=== PATIENT | female | born 1945 | race Caucasian/White ===

== ENCOUNTER 2016-08-24 16:12 | Inpatient (IN) | payer MEDICARE, OTHER ==
[2016-08-24] MEDS ORDERED: Sodium Chloride 0.9% 1,000 ML IV ONE (17:21)
--- NOTE | 2016-08-24 17:44 | C.PDOC ---
History Of Present Illness 71 y/o female presents to the ED with complains of weakness and fatigue x1 month worsening over the past 4 days. Son is concerned for weight loss. Pt complains of low appetite and chronic back pain. Denies abdominal pain, cough, CP, SOB, vomiting, diarrhea, changes in urination or bowel habits or any other complaints. Son went to visit patient today and she was still in bed which was abnormal. Time Seen by Provider: 08/24/16 17:15 Chief Complaint (Nursing): Weakness/Neurological Deficit History Per: Patient History/Exam Limitations: no limitations Onset/Duration Of Symptoms: Days Current Symptoms Are (Timing): Worse Fall Associated With With Symptoms: No Recent travel outside of the [place]: No Additional History Per: Family Past Medical History Reviewed: Historical Data, Nursing Documentation, Vital Signs Vital Signs: Last Vital Signs Temp 98.2 F 08/24/16 16:47 Pulse 112 H 08/24/16 16:47 Resp 22 08/24/16 16:47 BP 149/89 08/24/16 16:47 Pulse Ox 98 08/24/16 18:50 - Medical History PMH: Asthma Family History: States: Unknown Family Hx - Social History Hx Tobacco Use: No Hx Alcohol Use: No Hx Substance Use: No - Immunization History Hx Tetanus Toxoid Vaccination: No Hx Influenza Vaccination: No Hx Pneumococcal Vaccination: No Review Of Systems Except As Marked, All Systems Reviewed And Found Negative. Constitutional: Positive for: Weakness, Other (decreased appetite, fatigue). Negative for: Fever, Chills Cardiovascular: Negative for: Chest Pain Respiratory: Negative for: Cough, Shortness of Breath Gastrointestinal: Negative for: Vomiting, Abdominal Pain, Diarrhea Physical Exam - Physical Exam Appears: Non-toxic, No Acute Distress Skin: Warm, Dry, No Rash Head: Atraumatic, Normacephalic Oral Mucosa: Dry Neck: Normal ROM, Supple Chest: Symmetrical Cardiovascular: Rhythm Regular, No Murmur Respiratory: Normal Breath Sounds, No Rales, No Rhonchi, No Wheezing Gastrointestinal/Abdominal: Soft, No Tenderness Extremity: Normal ROM Extremity: Bilateral: Atraumatic ED Course And Treatment - Laboratory Results Result Diagrams: 08/24/16 17:47 08/24/16 17:47 Lab Interpretation: Abnormal (blood sugar 395. Patient is not known to be diabetic.) O2 Sat by Pulse Oximetry: 98 (on room air) Pulse Ox Interpretation: Normal - Radiology CXR: Viewed By Me, Read By Radiologist CXR Interpretation: Yes: COPD Progress Note: Plan: labs, CXR, UA Reevaluation Time: 18:50 Reassessment Condition: Improved (More comfortable after IV fluid.) - Physician Consult Information Time Consulting Physician Contacted: 19:04 Physician Contacted: Sonu Singletary Outcome Of Conversation: Patient to be admitted for new onset diabetes. Disposition - Disposition Disposition: HOSPITALIZED Disposition Time: 19:08 Condition: STABLE - POA Present On Arrival: Poor Glycemic Control - Clinical Impression Clinical Impression: New onset type 2 diabetes mellitus - Scribe Statement The provider has reviewed the documentation as recorded by the Humberto Petersen Provider Attestation: All medical record entries made by the Humberto were at my direction and personally dictated by me. I have reviewed the chart and agree that the record accurately reflects my personal performance of the history, physical exam, medical decision making, and the department course for this patient. I have also personally directed, reviewed, and agree with the discharge instructions and disposition.
[2016-08-24] MEDS ORDERED: Naproxen 550 mg Tab PO STA (17:50)
[2016-08-24 17:53] LABS: BASO % 0.8 % (0.0-2.0); EOS % 0.7 % (0.0-4.0); HEMATOCRIT 43.7 % (34.0-47.0); LYMPH # 1.4 K/uL (1.0-4.3); MEAN CELL VOLUME 88.2 fL (81.0-99.0); MEAN CORPUSCULAR HEMOGLOBIN 30.7 pg (27.0-31.0); MEAN CORPUSCULAR HGB CONC 34.8 g/dL (33.0-37.0); MEAN PLATELET VOLUME 8.8 fL (7.2-11.7); MONO # 0.3 K/uL (0.0-0.8); MONO % 5.9 % (0.0-10.0); NRBC % 0.1 % (0.0-2.0); RED CELL DISTRIBUTION WIDTH 12.8 % (11.5-14.5); WHITE BLOOD COUNT 5.3 K/uL (4.8-10.8)
[2016-08-24 18:00] LABS: CHLORIDE 92 mmol/L (98-107); POTASSIUM 4.3 mmol/L (3.6-5.2); SODIUM 133 mmol/L (132-148)
[2016-08-24 18:02] LABS: ALB/GLOB RATIO 1.1 (1.0-2.1); ALKALINE PHOSPHATASE 73 U/L (38-126); AST/SGOT 48 U/L (14-36); BILIRUBIN,TOTAL 0.8 mg/dL (0.2-1.3); BLOOD UREA NITROGEN 11 mg/dL (7-17); CARBON DIOXIDE 25 mmol/L (22-30); GFR AFRICAN-AMERICAN > 60; TOTAL PROTEIN 8.1 g/dL (6.3-8.3)
[2016-08-24] MEDS ORDERED: Sodium Chloride 0.9% 1,000 ML ONE (18:02)
[2016-08-24] MEDS ORDERED: Naproxen 550 mg Tab PO ONE (18:02)
[2016-08-24 18:03] LABS: ALT/SGPT 84 U/L (9-52); CALCIUM 9.2 mg/dl (8.6-10.4); GLUCOSE,RANDOM 395 mg/dL (65-105); MAGNESIUM 1.7 mg/dL (1.6-2.3)
[2016-08-24 18:23] LABS: RBC URINE 3 /hpf (0-3); URINE BACTERIA RARE (<OCC); URINE BILIRUBIN NEGATIVE (NEGATIVE); URINE BLOOD NEGATIVE (NEGATIVE); URINE COLOR Yellow (YELLOW); URINE GLUCOSE (UA) 3+ mg/dL (Normal); URINE KETONE 1+ mg/dL (NEGATIVE); URINE LEUKOCYTE ESTERASE 1+ Leu/uL (Negative); URINE PROTEIN NEGATIVE (NEGATIVE); URINE UROBILINOGEN NORMAL mg/dL (0.2-1.0); WBC URINE 8 /hpf (0-5)
--- NOTE | 2016-08-24 18:32 | RAD ---
HISTORY: SOB COMPARISON: None available. TECHNIQUE: Chest PA and lateral FINDINGS: LUNGS: Hyperinflation may be seen in the setting of COPD. Emphysematous changes. No focal consolidation. Please note that chest x-ray has limited sensitivity for the detection of pulmonary masses. PLEURA: No significant pleural effusion identified. No definite pneumothorax . CARDIOVASCULAR: Heart size appears within normal limits. Atherosclerotic calcifications of the aorta. OSSEOUS STRUCTURES: Mild degenerative changes. VISUALIZED UPPER ABDOMEN: Unremarkable. OTHER FINDINGS: None. IMPRESSION: COPD/emphysema.
[2016-08-24] MEDS ORDERED: Sodium Chloride 0.9% 500 ML IV ONE ×2 (18:47→19:25)
[2016-08-24] MEDS ORDERED: (Novolin R) Insulin Human Regular 100 units/ml vial IV ONE (21:48)
[2016-08-24] MEDS: Sodium Chloride 0.9% 1,000 ML IV SCH (22:05)
[2016-08-24] MEDS: (Novolin R) Insulin Human Regular 100 units/ml vial SC SCH (22:06)
--- NOTE | 2016-08-24 22:30 | CP.PCM.HP ---
<Jennifer You - Last Filed: 08/24/16 22:18> History of Present Illness - History of Present Illness History of Present Illness: CC: "weight loss and weakness" HPI: Patient is a 71 year old female with previous medical history of gallstone pancreatitis and chronic back pain who presented to the emergency department due to significant weight loss and weakness. Patient states she lost 55 pounds within 3-4 months (previously weighed 125 pounds) and has been experiencing fatigue and weakness for 1 month. Patient states she has a poor diet and reports having only coffee for breakfast and eating rice or soup for dinner. She recently started to drink 2 ensures per day. Patient states her po intake has been limited to soft foods since she lost her teeth. Patient admits to polydipsia and polyuria present for a month. She states she finds herself constantly drinking water as she feels her oral mucosa and lips to be dry. Patient denies fruity breath, shortness of breath, abdominal pain, nausea, vomiting, diarrhea, constipation, hematochezia or melenic stool, lower extremity edema, numbness or tingling to lower extremities. She admits to blurry vision for which she has an appointment with an touch up worker. She notes it has been a long time since seeing her primary care doctor. PMD: Dr. Dalton PMH: see HPI Medications: Tylenol 650 mg po once daily for chronic back pain Allergies: NKDA Family Hx: not pertinent Surgical History: none Social: Never smoker. Denies alcohol and illicit drug use. Present on Admission - Present on Admission Any Indicators Present on Admission: No History of DVT/PE: No History of Uncontrolled Diabetes: No Urinary Catheter: No Decubitus Ulcer Present: No Review of Systems - Constitutional Constitutional: Fatigue, Headache, Lethargy, Weight Loss. absent: Chills, Fever , Night Sweats - EENT Eyes: Blurred Vision, Change in Vision Ears: absent: Ear Discharge, Ear Pain Nose/Mouth/Throat: absent: Nasal Congestion, Nasal Discharge, Sinus Pain - Cardiovascular Cardiovascular: absent: Chest Pain, Chest Pain with Activity, Dyspnea, Edema, Leg Edema, Palpitations, Paroxysmal Nocturnal Dyspnea, Syncope - Respiratory Respiratory: absent: Cough, Dyspnea, Dyspnea on Exertion, Chest Congestion, Excessive Mucous Production - Gastrointestinal Gastrointestinal: absent: Abdominal Pain, Bloating, Change in Bowel Habits, Constipation, Diarrhea, Dysphagia, Hematochezia, Melena, Nausea, Vomiting - Musculoskeletal Musculoskeletal: Back Pain - Integumentary Integumentary: absent: Changing Lesions, New Lesions - Neurological Neurological: Weakness. absent: Lack of Coordination, Paresthesias, Sensory Deficit, Tingling - Psychiatric Psychiatric: absent: Anxiety, Depression - Endocrine Endocrine: absent: Cold Intolorance, Heat Intolorance Past Patient History - Infectious Disease Hx of Infectious Diseases: None - Past Social History Smoking Status: Never Smoked - CARDIAC Hx Hypotension: Yes - PULMONARY Hx Asthma: Yes - HEENT Hx Cataracts: Yes - PSYCHIATRIC Hx Substance Use: No Meds Allergies/Adverse Reactions: Allergies Allergy/AdvReac Type Severity Reaction Status Date / Time No Known Allergies Allergy Verified 08/24/16 16:53 Physical Exam - Constitutional Appears: Non-toxic, No Acute Distress - Head Exam Head Exam: ATRAUMATIC, NORMAL INSPECTION, NORMOCEPHALIC - Eye Exam Eye Exam: EOMI, Normal appearance, PERRL. absent: Scleral icterus Pupil Exam: PERRL - ENT Exam ENT Exam: Mucous Membranes Moist, Normal Exam - Neck Exam Neck exam: Positive for: Normal Inspection. Negative for: Lymphadenopathy - Respiratory Exam Respiratory Exam: Clear to Auscultation Bilateral, NORMAL BREATHING PATTERN. absent: Rales, Rhonchi, Wheezes - Cardiovascular Exam Cardiovascular Exam: +S1, +S2. absent: Tachycardia - GI/Abdominal Exam GI & Abdominal Exam: Normal Bowel Sounds, Soft. absent: Distended, Firm, Guarding - Extremities Exam Extremities exam: Positive for: normal inspection, pedal pulses present. Negative for: pedal edema, tenderness - Back Exam Back exam: NORMAL INSPECTION. absent: tenderness - Neurological Exam Neurological exam: Alert, CN II-XII Intact, Oriented x3 - Psychiatric Exam Psychiatric exam: Normal Mood - Skin Skin Exam: Dry, Normal Color Results - Vital Signs Recent Vital Signs: Last Vital Signs Temp 98.5 F 08/24/16 19:52 Pulse 95 H 08/24/16 19:52 Resp 18 08/24/16 19:52 BP 141/82 08/24/16 19:52 Pulse Ox 97 08/24/16 19:52 - Labs Result Diagrams: 08/24/16 17:47 08/24/16 17:47 Assessment & Plan - Assessment and Plan (Free Text) Assessment: 1. New onset Diabetes Mellitus - likely Type I - reports polydipsia, polyuria, significant weight loss - glucose 395 - f/u hemoglobin a1c - f/u TSH, T4 and AM labs - Start Normal Saline IV @125cc for hydration - Start Insulin Sliding Scale - low protocol - Accuchecks - CT Abdomen/Pelvis with PO and IV contrast for the morning to evaluate the pancreas 2. Prophylaxis - Soft Diet, Boost Glucose Control - SCD - Pepcid 20 mg po daily - Date & Time Date: 08/24/16 Time: 22:44 <Stevie Freeman P - Last Filed: 08/26/16 20:17> Results - Vital Signs Recent Vital Signs: Last Vital Signs Temp 97.9 F 08/26/16 07:48 Pulse 79 08/26/16 10:18 Resp 20 08/26/16 07:48 BP 134/83 08/26/16 07:48 Pulse Ox 98 08/26/16 07:48 - Labs Result Diagrams: 08/25/16 08:15 08/25/16 08:15 Labs: Laboratory Results - last 24 hr 08/25/16 08/26/16 08/26/16 21:10 07:11 11:07 POC Glucose (mg/dL) 325 H 342 H 311 H Attending/Attestation - Attestation I have personally seen and examined this patient.: Yes I have fully participated in the care of the patient.: Yes I have reviewed all pertinent clinical information: Yes
[2016-08-24 23:56] VITALS: RESP 20
[2016-08-25] MEDS: Sodium Chloride 0.9% 1,000 ML IV SCH ×3 (05:52→21:25)
[2016-08-25] MEDS: (Novolin R) Insulin Human Regular 100 units/ml vial SC SCH ×4 (08:15→22:22)
[2016-08-25 08:21] LABS: BASO # 0.1 K/uL (0.0-0.2); BASO % 1.5 % (0.0-2.0); EOS # 0.1 K/uL (0.0-0.7); EOS % 2.1 % (0.0-4.0); HEMATOCRIT 40.4 % (34.0-47.0); LYMPH # 1.6 K/uL (1.0-4.3); LYMPH % 42.6 % (20.0-40.0); MEAN CELL VOLUME 88.9 fL (81.0-99.0); MEAN CORPUSCULAR HEMOGLOBIN 30.7 pg (27.0-31.0); MEAN CORPUSCULAR HGB CONC 34.5 g/dL (33.0-37.0); MEAN PLATELET VOLUME 8.5 fL (7.2-11.7); MONO # 0.3 K/uL (0.0-0.8); MONO % 6.7 % (0.0-10.0); RED CELL DISTRIBUTION WIDTH 12.7 % (11.5-14.5); WHITE BLOOD COUNT 3.8 K/uL (4.8-10.8)
[2016-08-25 08:29] LABS: CHLORIDE 98 mmol/L (98-107)
[2016-08-25 08:30] LABS: POTASSIUM 3.7 mmol/L (3.6-5.2); SODIUM 133 mmol/L (132-148)
[2016-08-25 08:31] LABS: CHOLESTEROL 176 mg/dL (0-199)
[2016-08-25 08:32] LABS: ALKALINE PHOSPHATASE 61 U/L (38-126); ALT/SGPT 71 U/L (9-52); AST/SGOT 54 U/L (14-36); BILIRUBIN,TOTAL 0.7 mg/dL (0.2-1.3); BLOOD UREA NITROGEN 9 mg/dL (7-17); CARBON DIOXIDE 21 mmol/L (22-30); GFR AFRICAN-AMERICAN > 60; GLUCOSE,RANDOM 248 mg/dL (65-105); PHOSPHOROUS 2.6 mg/dL (2.5-4.5); TOTAL PROTEIN 6.6 g/dL (6.3-8.3)
[2016-08-25 08:33] LABS: CALCIUM 8.1 mg/dl (8.6-10.4); MAGNESIUM 1.5 mg/dL (1.6-2.3)
[2016-08-25 08:54] LABS: T4 6.94 ug/dL (5.5-11.0)
[2016-08-25 09:08] LABS: THYROID STIMULATING HORMONE 5.92 mIU/L (0.46-4.68)
[2016-08-25] MEDS ORDERED: Iohexol 240 (50 ml) PO ONE (09:15)
--- NOTE | 2016-08-25 10:15 | CP.PCM.PN ---
<Moises Lopez - Last Filed: 08/25/16 10:08> Subjective - Date & Time of Evaluation Date of Evaluation: 08/25/16 Time of Evaluation: 10:08 - Subjective Subjective: PGY-1 note for medicine service Pt seen and examined at bedside. Pt states that she feels better today with increased strength. She has no abdominal pain, nausea, vomiting, chest pain, palpitations or sob. Objective - Vital Signs/Intake and Output Vital Signs (last 24 hours): Temp Pulse Resp BP Pulse Ox 98 F 84 20 148/90 98 08/25/16 07:46 08/25/16 07:46 08/25/16 07:46 08/25/16 07:46 08/25/16 07:46 Intake and Output: 08/25/16 08/25/16 06:59 18:59 Intake Total 1150 Balance 1150 - Medications Medications: Current Medications Famotidine (Pepcid) 20 mg PO DAILY [facility] Glipizide (Glucotrol) 2.5 mg PO BIDAC [facility] Heparin Sodium (Porcine) (Heparin) 5,000 units SC Q12 [facility] Sodium Chloride (Sodium Chloride 0.9%) 1,000 mls @ 125 mls/hr IV .Q8H [facility] Last Admin: 08/25/16 05:52 Dose: 125 mls/hr Magnesium Sulfate/Dextrose (Magnesium Sulfate 1 Gm/100 Ml D5w) 100 mls @ 200 mls/hr IVPB ONCE ONE Stop: 08/25/16 10:29 Last Admin: 08/25/16 09:34 Dose: 200 mls/hr Insulin Human Regular (Novolin R) 0 unit SC ACHS [facility] PRN Reason: Protocol Lisinopril (Zestril) 2.5 mg PO DAILY [facility] Metformin HCl (Glucophage) 500 mg PO BIDCC [facility] Rosuvastatin Calcium (Crestor) 5 mg PO HS [facility] - Labs Labs: 08/25/16 08:15 08/25/16 08:15 - Constitutional Appears: Non-toxic, No Acute Distress - Head Exam Head Exam: ATRAUMATIC, NORMOCEPHALIC - ENT Exam ENT Exam: Mucous Membranes Dry - Respiratory Exam Respiratory Exam: Clear to Ausculation Bilateral, NORMAL BREATHING PATTERN - Cardiovascular Exam Cardiovascular Exam: +S1, +S2 - GI/Abdominal Exam GI & Abdominal Exam: Soft, Normal Bowel Sounds. absent: Tenderness - Neurological Exam Neurological Exam: Alert, Awake - Skin Skin Exam: Dry, Warm Assessment and Plan - Assessment and Plan (Free Text) Assessment: New onset Diabetes Mellitus - likely Type II - reports polydipsia, polyuria, significant weight loss - hemoglobin a1c - 14.2 - Thyroid panel unremarkable - Normal Saline IV @125cc for hydration - Upgraded ISS to high - Will start glipezide 2.5mg BID - Will start Metformin 500mg BID - Will also start lisinopril 2.5mg daily and Crestor 5mg HS - Accuchecks - CT Abdomen/Pelvis with PO and IV contrast for the morning to evaluate the pancreas - f/u Prophylaxis - Soft Diet, Boost Glucose Control - SCD - Pepcid 20 mg po daily <Sonu Singletary - Last Filed: 08/25/16 11:35> Objective - Vital Signs/Intake and Output Vital Signs (last 24 hours): Temp Pulse Resp BP Pulse Ox 98 F 84 20 148/90 98 08/25/16 07:46 08/25/16 07:46 08/25/16 07:46 08/25/16 07:46 08/25/16 07:46 Intake and Output: 08/25/16 08/25/16 06:59 18:59 Intake Total 1150 Balance 1150 - Medications Medications: Current Medications Famotidine (Pepcid) 20 mg PO DAILY [facility] Last Admin: 08/25/16 10:50 Dose: 20 mg Glipizide (Glucotrol) 2.5 mg PO BIDAC [facility] Last Admin: 08/25/16 10:54 Dose: Not Given Heparin Sodium (Porcine) (Heparin) 5,000 units SC Q12 [facility] Last Admin: 08/25/16 10:50 Dose: 5,000 units Sodium Chloride (Sodium Chloride 0.9%) 1,000 mls @ 125 mls/hr IV .Q8H [facility] Last Admin: 08/25/16 05:52 Dose: 125 mls/hr Insulin Human Regular (Novolin R) 0 unit SC ACHS [facility] PRN Reason: Protocol Lisinopril (Zestril) 2.5 mg PO DAILY [facility] Last Admin: 08/25/16 10:51 Dose: 2.5 mg Metformin HCl (Glucophage) 500 mg PO BIDCC [facility] Last Admin: 08/25/16 10:47 Dose: Not Given Rosuvastatin Calcium (Crestor) 5 mg PO HS [facility] - Labs Labs: 08/25/16 08:15 08/25/16 08:15 Attending/Attestation - Attestation I have personally seen and examined this patient.: Yes I have fully participated in the care of the patient.: Yes I have reviewed all pertinent clinical information, including history, physical exam and plan: Yes Notes (Text): 08/25/16 11:33 Medical attending: Patient was seen and examined by me, agrees the above note by medical scientific officer. The patient reported that she was feeling better than before, she was not as tired and not as fatigued. She explains to us as well as to the family member present in the room that she's been having a lot of polyuria and polydipsia. She explains that she's also noticed some weight loss as well, fatigued, and has not been feeling herself She does not know that she has a history of diabetes, however she also says that she hasn't seen her physician in quite a while. At this time will continue continue with the intravenous fluids that was started by overnight team, will change her insulin over to a higher sliding scale. We will start metformin, and we will also start glipizide, low dose statin and RADHA inhibitor. The patient had a family member who is present at bedside. Family member also works at the hospital as well. Thank you very much, Sonu Singletary
[2016-08-25] MEDS: GlipiZIDE 2.5 mg Tab PO SCH ×2 (10:54→17:55)
[2016-08-25] MEDS ORDERED: Iodixanol 320 MG/ML 100 ML BOTTLE IV ONE (12:33)
--- NOTE | 2016-08-25 13:54 | CT ---
PROCEDURE: CT Abdomen and Pelvis with oral and IV contrast. HISTORY: evaluate for mass COMPARISON: None available. TECHNIQUE: Contiguous axial images of the abdomen and pelvis. Oral and IV contrast was administered. Coronal and Sagittal reformats generated and reviewed. Contrast dose: 100 cc Visipaque 320 Radiation dose: Total exam DLP = 202.48 mGy-cm. FINDINGS: LOWER THORAX: No visible consolidation, pleural effusion, or pneumothorax. Small hiatal hernia. LIVER: Hypoattenuation of the liver compatible with hepatic steatosis. GALLBLADDER AND BILE DUCTS: Cholecystectomy. PANCREAS: Unremarkable. SPLEEN: 5 mm probable splenule. Otherwise unremarkable. ADRENALS: Unremarkable. KIDNEYS AND URETERS: The kidneys enhance symmetrically. No hydronephrosis or obstructing renal calculus. 13 mm left renal hypodensity, likely cyst. BLADDER: The urinary bladder appears unremarkable. REPRODUCTIVE: The uterus is present. APPENDIX: The appendix appears within normal limits of caliber. No secondary signs of acute appendicitis. BOWEL: Nondistended stomach containing ingested debris limits evaluation. Mild wall thickening of the distal gastric wall may be exaggerated by under distension. Alternatives including gastritis cannot be excluded. Correlate clinically. The bowel loops appear within normal limits of caliber without evidence of intestinal obstruction. PERITONEUM: Small pelvic free fluid. No definite free air. LYMPH NODES: No bulky lymphadenopathy identified. VASCULATURE: No aortic aneurysm. BONES: Mild degenerative changes. OTHER FINDINGS: None. IMPRESSION: Small pelvic free fluid. Hepatic steatosis. Cholecystectomy. 13 mm left renal hypodensity, likely cyst. Small hiatal hernia. Nondistended stomach containing ingested debris limits evaluation. Mild wall thickening of the distal gastric wall may be exaggerated by under distension. Alternatives including gastritis cannot be excluded. Correlate clinically.
[2016-08-25] MEDS ORDERED: Albuterol-Ipratrop 3 mg / 0.5 (3 ml) UD INH PRN (14:03)
[2016-08-26 01:54] VITALS: O2SAT 98
[2016-08-26] MEDS: Sodium Chloride 0.9% 1,000 ML IV SCH (06:45)
[2016-08-26 07:50] VITALS: BP 134/83; PULSE 79; TEMP 97.9
[2016-08-26] MEDS: (Novolin R) Insulin Human Regular 100 units/ml vial SC SCH (09:16)
[2016-08-26] MEDS: GlipiZIDE 2.5 mg Tab PO SCH (09:29)
--- NOTE | 2016-08-26 09:38 | CP.PCM.DIS ---
<Moises Lopez - Last Filed: 08/26/16 12:08> Provider - Provider Date of Admission: 08/24/16 21:49 Attending physician: Stevie Freeman MD Primary care physician: Sha Time Spent in preparation of Discharge (in minutes): 31 Hospital Course - Lab Results Lab Results: Most Recent Lab Values WBC 3.8 K/uL (4.8-10.8) L 08/25/16 08:15 RBC 4.54 Mil/uL (3.80-5.20) 08/25/16 08:15 Hgb 13.9 g/dL (11.0-16.0) 08/25/16 08:15 Hct 40.4 % (34.0-47.0) 08/25/16 08:15 MCV 88.9 fL (81.0-99.0) 08/25/16 08:15 MCH 30.7 pg (27.0-31.0) 08/25/16 08:15 MCHC 34.5 g/dL (33.0-37.0) 08/25/16 08:15 RDW 12.7 % (11.5-14.5) 08/25/16 08:15 Plt Count 290 K/uL (130-400) 08/25/16 08:15 MPV 8.5 fL (7.2-11.7) 08/25/16 08:15 Neut % (Auto) 47.1 % (50.0-75.0) L 08/25/16 08:15 Lymph % (Auto) 42.6 % (20.0-40.0) H 08/25/16 08:15 Lawrence % (Auto) 6.7 % (0.0-10.0) 08/25/16 08:15 Eos % (Auto) 2.1 % (0.0-4.0) 08/25/16 08:15 Baso % (Auto) 1.5 % (0.0-2.0) 08/25/16 08:15 Neut # 1.8 K/uL (1.8-7.0) 08/25/16 08:15 Lymph # 1.6 K/uL (1.0-4.3) 08/25/16 08:15 Lawrence # 0.3 K/uL (0.0-0.8) 08/25/16 08:15 Eos # 0.1 K/uL (0.0-0.7) 08/25/16 08:15 Baso # 0.1 K/uL (0.0-0.2) 08/25/16 08:15 Sodium 133 mmol/L (132-148) 08/25/16 08:15 Potassium 3.7 mmol/L (3.6-5.2) 08/25/16 08:15 Chloride 98 mmol/L (98-107) 08/25/16 08:15 Carbon Dioxide 21 mmol/L (22-30) L 08/25/16 08:15 Anion Gap 18 (10-20) 08/25/16 08:15 BUN 9 mg/dL (7-17) 08/25/16 08:15 Creatinine 0.3 MG/DL (0.7-1.2) L 08/25/16 08:15 Est GFR ( Amer) > 60 08/25/16 08:15 Est GFR (Non-Af Amer) > 60 08/25/16 08:15 POC Glucose (mg/dL) 342 mg/dL (65-110) H 08/26/16 07:11 Random Glucose 248 mg/dL (65-105) H 08/25/16 08:15 Hemoglobin A1c 14.2 % (4.2-6.5) H 08/25/16 08:15 Calcium 8.1 mg/dl (8.6-10.4) L 08/25/16 08:15 Phosphorus 2.6 mg/dL (2.5-4.5) 08/25/16 08:15 Magnesium 1.5 mg/dL (1.6-2.3) L 08/25/16 08:15 Total Bilirubin 0.7 mg/dL (0.2-1.3) 08/25/16 08:15 AST 54 U/L (14-36) H 08/25/16 08:15 ALT 71 U/L (9-52) H 08/25/16 08:15 Alkaline Phosphatase 61 U/L (38-126) 08/25/16 08:15 Total Protein 6.6 g/dL (6.3-8.3) 08/25/16 08:15 Albumin 3.3 g/dL (3.5-5.0) L D 08/25/16 08:15 Globulin 3.3 gm/dL (2.2-3.9) 08/25/16 08:15 Albumin/Globulin Ratio 1.0 (1.0-2.1) 08/25/16 08:15 Triglycerides 103 mg/dL (0-149) 08/25/16 08:15 Cholesterol 176 mg/dL (0-199) 08/25/16 08:15 LDL Cholesterol Direct 113 mg/dL (0-129) 08/25/16 08:15 HDL Cholesterol 42 mg/dL (30-70) 08/25/16 08:15 Vitamin B12 454 pg/mL (239-931) 08/25/16 08:15 25-OH Vitamin D Total 23.2 NG/ML (30.0-100.0) L 08/25/16 08:15 Thyroxine (T4) 6.94 ug/dL (5.5-11.0) 08/25/16 08:15 TSH 3rd Generation 5.92 mIU/L (0.46-4.68) H 08/25/16 08:15 Urine Color Yellow (YELLOW) 08/24/16 17:57 Urine Clarity Clear (Clear) 08/24/16 17:57 Urine pH 5.0 (5.0-8.0) 08/24/16 17:57 Ur Specific [place] 1.040 (1.003-1.030) H 08/24/16 17:57 Urine Protein Negative mg/dL (NEGATIVE) 08/24/16 17:57 Urine Glucose (UA) 3+ mg/dL (Normal) H 08/24/16 17:57 Urine Ketones 1+ mg/dL (NEGATIVE) H 08/24/16 17:57 Urine Blood Negative (NEGATIVE) 08/24/16 17:57 Urine Nitrate Negative (NEGATIVE) 08/24/16 17:57 Urine Bilirubin Negative (NEGATIVE) 08/24/16 17:57 Urine Urobilinogen Normal mg/dL (0.2-1.0) 08/24/16 17:57 Ur Leukocyte Esterase 1+ Aimee/uL (Negative) H 08/24/16 17:57 Urine WBC (Auto) 8 /hpf (0-5) H 08/24/16 17:57 Urine RBC (Auto) 3 /hpf (0-3) 08/24/16 17:57 Ur Squamous Epith Cells < 1 /hpf (0-5) 08/24/16 17:57 Urine Bacteria Rare (<OCC) 08/24/16 17:57 - Hospital Course Hospital Course: On hospital admission Patient is a 71 year old female with previous medical history of gallstone pancreatitis and chronic back pain who presented to the emergency department due to significant weight loss and weakness. Patient states she lost 55 pounds within 3-4 months (previously weighed 125 pounds) and has been experiencing fatigue and weakness for 1 month. Patient states she has a poor diet and reports having only coffee for breakfast and eating rice or soup for dinner. She recently started to drink 2 ensures per day. Patient states her po intake has been limited to soft foods since she lost her teeth. Patient admits to polydipsia and polyuria present for a month. She states she finds herself constantly drinking water as she feels her oral mucosa and lips to be dry. Patient denies fruity breath, shortness of breath, abdominal pain, nausea, vomiting, diarrhea, constipation, hematochezia or melenic stool, lower extremity edema, numbness or tingling to lower extremities. She admits to blurry vision for which she has an appointment with an rn clinical documentation specialist. She notes it has been a long time since seeing her primary care doctor. On hospital admission The pt was admitted for new onset diabetes with weight loss. A CT abdomen and pelvis with contrast was ordered which revealed no acute processes or masses. The pt was started on metformin and glimepizide which she tolerated well. She was resuscitated appropriately with IVF and she improved symptomatically. Pt was discharged in stable condition on the following new medications: Aspirin [Adult Low Dose Aspirin EC] 81 mg PO DAILY #30 tablet. Rosuvastatin Calcium [Crestor] 5 mg PO HS #30 tab GlipiZIDE [Glucotrol] 2.5 mg PO BIDAC #60 tab Lisinopril [Zestril] 2.5 mg PO DAILY #30 tab metFORMIN [glucOPHAGE] 500 mg PO BIDCC #60 tab Pt instructed to follow up with primary care physician within the next week. Diagnoses New onset diabetes mellitus This is a summary of hospital course, for details please see EMR. - Date & Time of H&P Date of H&P: 08/24/16 Time of H&P: 22:18 Discharge Exam - Head Exam Head Exam: ATRAUMATIC, NORMOCEPHALIC Discharge Plan - Discharge Medications Prescriptions: Aspirin [Adult Low Dose Aspirin EC] 81 mg PO DAILY #30 tablet. Rosuvastatin Calcium [Crestor] 5 mg PO HS #30 tab GlipiZIDE [Glucotrol] 2.5 mg PO BIDAC #60 tab Lisinopril [Zestril] 2.5 mg PO DAILY #30 tab metFORMIN [glucOPHAGE] 500 mg PO BIDCC #60 tab - Follow Up Plan Condition: GOOD Disposition: HOME/ ROUTINE Instructions: Lisinopril (By mouth), Glipizide (By mouth), Aspirin (By mouth), Metformin (By mouth), Rosuvastatin (By mouth), How to Check Your Blood Sugar (DC ), Diabetic Foot Care (DC), Meal Planning with Diabetes Exchanges (DC) Additional Instructions: Please begin taking new prescription medication as directed and follow up with Dr Dalton within the next couple of weeks. Return to the hospital with any new or worsening symptoms. New Medications Aspirin [Adult Low Dose Aspirin EC] 81 mg PO DAILY #30 tablet.[address] La Calcium [Crestor] 5 mg PO HS #30 tab GlipiZIDE [Glucotrol] 2.5 mg PO BIDAC #60 tab Lisinopril [Zestril] 2.5 mg PO DAILY #30 tab metFORMIN [glucOPHAGE] 500 mg PO BIDCC #60 tab Referrals: Jadiel Dalton MD [Staff Provider] - <Sonu Singletary H - Last Filed: 08/26/16 15:34> Provider - Provider Date of Admission: 08/24/16 21:49 Attending physician: Stevie Freeman MD Hospital Course - Lab Results Lab Results: Most Recent Lab Values WBC 3.8 K/uL (4.8-10.8) L 08/25/16 08:15 RBC 4.54 Mil/uL (3.80-5.20) 08/25/16 08:15 Hgb 13.9 g/dL (11.0-16.0) 08/25/16 08:15 Hct 40.4 % (34.0-47.0) 08/25/16 08:15 MCV 88.9 fL (81.0-99.0) 08/25/16 08:15 MCH 30.7 pg (27.0-31.0) 08/25/16 08:15 MCHC 34.5 g/dL (33.0-37.0) 08/25/16 08:15 RDW 12.7 % (11.5-14.5) 08/25/16 08:15 Plt Count 290 K/uL (130-400) 08/25/16 08:15 MPV 8.5 fL (7.2-11.7) 08/25/16 08:15 Neut % (Auto) 47.1 % (50.0-75.0) L 08/25/16 08:15 Lymph % (Auto) 42.6 % (20.0-40.0) H 08/25/16 08:15 Lawrence % (Auto) 6.7 % (0.0-10.0) 08/25/16 08:15 Eos % (Auto) 2.1 % (0.0-4.0) 08/25/16 08:15 Baso % (Auto) 1.5 % (0.0-2.0) 08/25/16 08:15 Neut # 1.8 K/uL (1.8-7.0) 08/25/16 08:15 Lymph # 1.6 K/uL (1.0-4.3) 08/25/16 08:15 Lawrence # 0.3 K/uL (0.0-0.8) 08/25/16 08:15 Eos # 0.1 K/uL (0.0-0.7) 08/25/16 08:15 Baso # 0.1 K/uL (0.0-0.2) 08/25/16 08:15 Sodium 133 mmol/L (132-148) 08/25/16 08:15 Potassium 3.7 mmol/L (3.6-5.2) 08/25/16 08:15 Chloride 98 mmol/L (98-107) 08/25/16 08:15 Carbon Dioxide 21 mmol/L (22-30) L 08/25/16 08:15 Anion Gap 18 (10-20) 08/25/16 08:15 BUN 9 mg/dL (7-17) 08/25/16 08:15 Creatinine 0.3 MG/DL (0.7-1.2) L 08/25/16 08:15 Est GFR ( Amer) > 60 08/25/16 08:15 Est GFR (Non-Af Amer) > 60 08/25/16 08:15 POC Glucose (mg/dL) 311 mg/dL (65-110) H 08/26/16 11:07 Random Glucose 248 mg/dL (65-105) H 08/25/16 08:15 Hemoglobin A1c 14.2 % (4.2-6.5) H 08/25/16 08:15 Calcium 8.1 mg/dl (8.6-10.4) L 08/25/16 08:15 Phosphorus 2.6 mg/dL (2.5-4.5) 08/25/16 08:15 Magnesium 1.5 mg/dL (1.6-2.3) L 08/25/16 08:15 Total Bilirubin 0.7 mg/dL (0.2-1.3) 08/25/16 08:15 AST 54 U/L (14-36) H 08/25/16 08:15 ALT 71 U/L (9-52) H 08/25/16 08:15 Alkaline Phosphatase 61 U/L (38-126) 08/25/16 08:15 Total Protein 6.6 g/dL (6.3-8.3) 08/25/16 08:15 Albumin 3.3 g/dL (3.5-5.0) L D 08/25/16 08:15 Globulin 3.3 gm/dL (2.2-3.9) 08/25/16 08:15 Albumin/Globulin Ratio 1.0 (1.0-2.1) 08/25/16 08:15 Triglycerides 103 mg/dL (0-149) 08/25/16 08:15 Cholesterol 176 mg/dL (0-199) 08/25/16 08:15 LDL Cholesterol Direct 113 mg/dL (0-129) 08/25/16 08:15 HDL Cholesterol 42 mg/dL (30-70) 08/25/16 08:15 Vitamin B12 454 pg/mL (239-931) 08/25/16 08:15 25-OH Vitamin D Total 23.2 NG/ML (30.0-100.0) L 08/25/16 08:15 Thyroxine (T4) 6.94 ug/dL (5.5-11.0) 08/25/16 08:15 TSH 3rd Generation 5.92 mIU/L (0.46-4.68) H 08/25/16 08:15 Urine Color Yellow (YELLOW) 08/24/16 17:57 Urine Clarity Clear (Clear) 08/24/16 17:57 Urine pH 5.0 (5.0-8.0) 08/24/16 17:57 Ur Specific [place] 1.040 (1.003-1.030) H 08/24/16 17:57 Urine Protein Negative mg/dL (NEGATIVE) 08/24/16 17:57 Urine Glucose (UA) 3+ mg/dL (Normal) H 08/24/16 17:57 Urine Ketones 1+ mg/dL (NEGATIVE) H 08/24/16 17:57 Urine Blood Negative (NEGATIVE) 08/24/16 17:57 Urine Nitrate Negative (NEGATIVE) 08/24/16 17:57 Urine Bilirubin Negative (NEGATIVE) 08/24/16 17:57 Urine Urobilinogen Normal mg/dL (0.2-1.0) 08/24/16 17:57 Ur Leukocyte Esterase 1+ Aimee/uL (Negative) H 08/24/16 17:57 Urine WBC (Auto) 8 /hpf (0-5) H 08/24/16 17:57 Urine RBC (Auto) 3 /hpf (0-3) 08/24/16 17:57 Ur Squamous Epith Cells < 1 /hpf (0-5) 08/24/16 17:57 Urine Bacteria Rare (<OCC) 08/24/16 17:57 Attending/Attestation - Attestation I have personally seen and examined this patient.: Yes I have fully participated in the care of the patient.: Yes I have reviewed all pertinent clinical information, including history, physical exam and plan: Yes Notes (Text): Medical attending: Patient was seen and examined by me. The patient will need to take her new medication - including metformin, glipizide, as well as a low dose ACEI and Statin class medication, she has recived quite a bit of IVF while here. She explains she does not feel as dry and does not feel as tired or weak now. She understands the importance of follow up as well as with accuchecks. She sees Dr Dalton out patient and explains that she understands she needs to follow up with him. thank you Sonu Singletary
== END 2016-08-26 12:25 | disposition home or self-care (01) | DRG 638 ==
LOC: C.ER 16:12 → C.9E 19:09 → C.3T 20:18 → OBSVTOIN 21:49
PROVIDERS: ADMIT Internal Medicine; ATTEND Internal Medicine
DX: E11.9 Type 2 diabetes mellitus without complications (principal); Z68.1 Body mass index [BMI] 19.9 or less, adult; G89.29 Other chronic pain; M54.9 Dorsalgia, unspecified; J45.909 Unspecified asthma, uncomplicated; R63.4 Abnormal weight loss

== ENCOUNTER 2016-09-02 05:12 | Emergency (ER) | payer MEDICAID, MEDICARE ==
[2016-09-02 05:39] VITALS: RESP 20; O2SAT 98
--- NOTE | 2016-09-02 05:51 | C.PDOC ---
History Of Present Illness Patient presents to the emergency room with complaints of chronic back pain. Patient reports that the pain is usually resolved by Tylenol and Aleve. Patient notes that the pain was not resolved with Aleve after waking up. Patient denies any urinary incontinence, fever, chills, nausea, vomiting, or any other complaints. Time Seen by Provider: 09/02/16 05:50 Chief Complaint (Nursing): Back Pain History Per: Patient History/Exam Limitations: no limitations Onset/Duration Of Symptoms: Hrs, Other (Chronic pain) Current Symptoms Are (Timing): Still Present Quality Of Discomfort: "Pain" Severity: Mild Pain Scale Rating Of: 4 Previous Symptoms: Back Pain, Chronic Pain Associated Symptoms: denies: Incontinence Exacerbating Factor(s): Nothing Recent travel outside of the [place]: No Past Medical History Reviewed: Historical Data, Nursing Documentation, Vital Signs Vital Signs: Last Vital Signs Temp 97.8 F 09/02/16 05:25 Pulse 101 H 09/02/16 05:25 Resp 20 09/02/16 05:25 BP 150/86 09/02/16 05:25 Pulse Ox 98 09/02/16 06:10 - Medical History PMH: Arthritis ([facility] BACK PAIN), Asthma Family History: States: Unknown Family Hx - Social History Hx Tobacco Use: No Hx Alcohol Use: No Hx Substance Use: No - Immunization History Hx Tetanus Toxoid Vaccination: No Hx Influenza Vaccination: No Hx Pneumococcal Vaccination: No Review Of Systems Constitutional: Negative for: Fever, Chills Gastrointestinal: Negative for: Nausea, Vomiting Genitourinary: Negative for: Incontinence Musculoskeletal: Positive for: Back Pain (Chronic) Physical Exam - Physical Exam Appears: Non-toxic Skin: Warm, Dry, No Rash Cardiovascular: Rhythm Regular Respiratory: No Rales, No Rhonchi, No Wheezing Gastrointestinal/Abdominal: Soft, No Tenderness, No Guarding, No Rebound Back: Other (Lumbar tenderness) Extremity: Normal ROM, No Tenderness Neurological/Psych: Oriented x3, Normal Speech, Normal Motor, Normal Sensation Gait: Steady ED Course And Treatment O2 Sat by Pulse Oximetry: 98 Pulse Ox Interpretation: Normal Reevaluation Time: 06:39 Reassessment Condition: Improved Medical Decision Making Medical Decision Making: Upon provider reevaluation patient is feeling better, is medically stable, and requires no further treatment in the ED at this time. Patient will be discharged home with Rx for tramadol . Counseling was provided and all questions were answered regarding diagnosis and need for follow up with dr dalton. There is agreement to discharge plan. Return if symptoms persist or worsen. Disposition Counseled Patient/Family Regarding: Studies Performed, Diagnosis, Need For Followup, Rx Given - Disposition Referrals: Elina Dalton MD [Medical Doctor] - Disposition: HOME/ ROUTINE Disposition Time: 05:51 Condition: FAIR Prescriptions: traMADol [Ultram] 50 mg PO BID PRN #8 tab PRN Reason: Pain, Severe (8-10) Instructions: Chronic Back Pain (ED) - Clinical Impression Clinical Impression: Chronic back pain - Scribe Statement The provider has reviewed the documentation as recorded by the Humberto Contreras Provider Scribe Attestation: All medical record entries made by the Humberto were at my direction and personally dictated by me. I have reviewed the chart and agree that the record accurately reflects my personal performance of the history, physical exam, medical decision making, and the department course for this patient. I have also personally directed, reviewed, and agree with the discharge instructions and disposition.
[2016-09-02 06:48] VITALS: BP 146/72; PULSE 78; TEMP 98
== END 2016-09-02 06:49 | disposition home or self-care (01) ==
LOC: C.ER 05:12
DX: M54.5 Low back pain (principal); G89.29 Other chronic pain
CPT/HCPCS: 96372; 99284; J2270

== ENCOUNTER 2016-09-07 22:26 | Emergency (ER) | payer MEDICAID | END 2016-09-07 23:55 | disposition home or self-care (01) | LOC: C.ER 22:26 | DX: M54.5 Low back pain (principal) ==

== ENCOUNTER 2016-09-10 00:27 | Emergency (ER) | payer MEDICAID ==
[2016-09-10 00:52] VITALS: RESP 20
--- NOTE | 2016-09-10 01:41 | C.PDOC ---
History Of Present Illness 71 year old female with a history of chronic back pain, presents to the ED with complaints of lower lumbar back pain radiating down to her legs. Patient has not followed up with her pain management doctor and states the pain is similar to her previous visits for similar complaints. Denies incontinence, change in sensation, injury, abdominal pain, or any other complaints at this time. Time Seen by Provider: 09/10/16 01:40 Chief Complaint (Nursing): Back Pain History Per: Patient History/Exam Limitations: no limitations Onset/Duration Of Symptoms: Days Current Symptoms Are (Timing): Still Present Quality Of Discomfort: "Pain" Severity: Mild Previous Symptoms: Back Pain Associated Symptoms: None Past Medical History Reviewed: Historical Data, Nursing Documentation, Vital Signs Vital Signs: Last Vital Signs Temp 98.2 F 09/10/16 03:59 Pulse 88 09/10/16 03:59 Resp 20 09/10/16 03:59 BP 133/72 09/10/16 03:59 Pulse Ox 100 09/10/16 03:59 - Medical History PMH: Arthritis ([facility] BACK PAIN), Asthma, HTN Family History: States: Unknown Family Hx - Social History Hx Tobacco Use: No Hx Alcohol Use: No Hx Substance Use: No - Immunization History Hx Tetanus Toxoid Vaccination: No Hx Influenza Vaccination: No Hx Pneumococcal Vaccination: No Review Of Systems Constitutional: Negative for: Fever, Chills Cardiovascular: Negative for: Chest Pain, Palpitations Respiratory: Negative for: Cough, Shortness of Breath Gastrointestinal: Negative for: Nausea, Vomiting, Abdominal Pain Genitourinary: Negative for: Dysuria, Frequency Musculoskeletal: Positive for: Back Pain. Negative for: Neck Pain Neurological: Negative for: Weakness, Numbness Physical Exam - Physical Exam Appears: Non-toxic, No Acute Distress Skin: Warm, Dry Head: Atraumatic, Normacephalic Eye(s): bilateral: Normal Inspection Oral Mucosa: Moist Chest: Symmetrical, No Deformity Cardiovascular: Rhythm Regular, No Murmur Respiratory: No Accessory Muscle Use, No Rales, No Rhonchi, No Wheezing Extremity: Normal ROM Neurological/Psych: Oriented x3, Normal Speech, Normal Cognition ED Course And Treatment O2 Sat by Pulse Oximetry: 99 (Room air) Pulse Ox Interpretation: Normal - CT Scan/US CT Lumbar Spine w/o contrast Other Rad Studies (CT/US): Read By Radiologist, Radiology Report Reviewed CT/US Interpretation: FINDINGS: Vertebrae: Unremarkable. No acute fracture. Discs/spinal canal/neural foramina: Mild multilevel degenerative changes in the spine most pronounced at L1-L2 where prominent anterior osteophytes are noted. Facet arthropathy is also present in the lower lumbar spine. Mild diffuse disc bulges are identified at L1-L2 and L4-L5 and minimal disc bulge is present at L5 -S1. No significant spinal canal stenosis or neuroforaminal. narrowing. Soft tissues: Unremarkable. Vasculature: The aorta demonstrates mild atherosclerotic calcification. Kidneys and ureters: A probable renal cyst is incidentally noted in the left kidney. IMPRESSION: No acute fracture. No significant spinal canal stenosis or neuroforaminal narrowing Progress Note: CT Lumbar Spine w/o contrast ordered and reviewed. Patient treated with Morphine. Reassessment Condition: Improved Disposition Counseled Patient/Family Regarding: Studies Performed, Diagnosis, Need For Followup - Disposition Referrals: Jadiel Dalton MD [Staff Provider] - Disposition: HOME/ ROUTINE Disposition Time: 01:40 Condition: FAIR Instructions: Chronic Back Pain (ED) - Clinical Impression Clinical Impression: Chronic back pain - Scribe Statement The provider has reviewed the documentation as recorded by the Scribe Marco Antonio Chau. Provider Attestation: All medical record entries made by the Scribe were at my direction and personally dictated by me. I have reviewed the chart and agree that the record accurately reflects my personal performance of the history, physical exam, medical decision making, and the department course for this patient. I have also personally directed, reviewed, and agree with the discharge instructions and disposition.
[2016-09-10 04:03] VITALS: BP 133/72; PULSE 88; TEMP 98.2
[2016-09-10 04:41] VITALS: O2SAT 99
--- NOTE | 2016-09-10 09:07 | CT ---
PROCEDURE: CT Lumbar Spine without contrast HISTORY: back pain COMPARISON: None. TECHNIQUE: Axial computed tomography images were obtained of the lumbar spine without the use of intravenous contrast. Coronal and sagittal reformatted images were created and reviewed. Radiation dose: Total exam DLP = 206 mGy-cm. This CT exam was performed using one or more of the following dose reduction techniques: Automated exposure control, adjustment of the mA and/or kV according to patient size, and/or use of iterative reconstruction technique. FINDINGS: VERTEBRAE: Unremarkable. No fracture. Normal alignment. DISCS/SPINAL CANAL/NEURAL FORAMINA: Mild multilevel degenerative changes in the spine most pronounced at L1-2 where there is a prominent anterior osteophyte is noted. Facet arthropathy is also present in the lower lumbar spine. Mild diffuse disc bulges are identified at L1-2 and L4-5 with additional mild disc bulge present at L5-S1. PARASPINAL SOFT TISSUES: Unremarkable. OTHER FINDINGS: Atherosclerotic calcification in the aorta. Probable renal cyst is incidentally noted in the left kidney. IMPRESSION: Negative acute. Degenerative changes. If pain persists, consider MRI. These findings were preliminarily reported at 3:27 a.m. on 09/10/[address] Aggie Terry from [facility].
== END 2016-09-10 03:59 | disposition home or self-care (01) ==
LOC: C.ER 00:27
DX: G89.29 Other chronic pain (principal); M54.9 Dorsalgia, unspecified
CPT/HCPCS: 72131; 96372; 99283; J2270

== ENCOUNTER 2016-11-26 05:24 | Emergency (ER) | payer MEDICARE, MEDICAID ==
[2016-11-26 05:34] VITALS: TEMP 98.6
--- NOTE | 2016-11-26 05:46 | C.PDOC ---
History Of Present Illness 71 year old female presents to the ED with complaints of severe pain to the left hip injury. Patient states she had an injury Monday and is taking oxycodone at home for pain but denies any new trauma. Chief Complaint (Nursing): Hip Pain History Per: Patient History/Exam Limitations: no limitations Onset/Duration Of Symptoms: Hrs, Days (original injury happened Monday ) Current Symptoms Are (Timing): Still Present Recent travel outside of the [place]: No Past Medical History Reviewed: Historical Data, Nursing Documentation, Vital Signs Vital Signs: Last Vital Signs Temp 98.6 F 11/26/16 05:26 Pulse 118 H 11/26/16 05:26 Resp 18 11/26/16 05:26 BP 168/107 H 11/26/16 05:26 Pulse Ox 100 11/26/16 06:52 - Medical History PMH: Arthritis ([facility] BACK PAIN), Asthma, HTN Family History: States: Unknown Family Hx - Social History Hx Tobacco Use: No Hx Alcohol Use: No Hx Substance Use: No - Immunization History Hx Tetanus Toxoid Vaccination: No Hx Influenza Vaccination: No Hx Pneumococcal Vaccination: No Review Of Systems Constitutional: Negative for: Fever, Chills, Sweats Cardiovascular: Negative for: Chest Pain, Palpitations Respiratory: Negative for: Cough, Shortness of Breath Gastrointestinal: Negative for: Nausea, Vomiting, Abdominal Pain, Diarrhea Musculoskeletal: Positive for: Other (left hip pain ) Neurological: Negative for: Weakness, Numbness Physical Exam - Physical Exam Appears: Non-toxic, No Acute Distress Skin: Warm, Dry Head: Atraumatic Eye(s): bilateral: Normal Inspection, PERRL, EOMI Neck: Supple Cardiovascular: Rhythm Regular Respiratory: No Rales, No Rhonchi, No Stridor, No Wheezing Gastrointestinal/Abdominal: Soft, No Tenderness, No Distention, No Guarding, No Rebound Extremity: Tenderness (left hip tenderness to touch ), No Calf Tenderness, Capillary Refill (good capillary refill ), No Deformity, No Swelling Neurological/Psych: Oriented x3 ED Course And Treatment O2 Sat by Pulse Oximetry: 100 - CT Scan/US CT Pelvis Without Intravenous Contrast Other Rad Studies (CT/US): Read By Radiologist, Radiology Report Reviewed CT/US Interpretation: FINDINGS: Bones/joints: Angulation of anterior cortex of distal sacrum. No dislocation. Degenerative changes. of pubic symphysis. Soft tissues: Unremarkable. Vasculature: Mild atherosclerotic disease. Stomach and bowel: Mild mural thickening of distal sigmoid colon/rectum. Mild to moderate. stranding within adjacent fat. No obstruction. Other findings: Cholecystectomy. IMPRESSION: 1. Probable nondisplaced sacral fracture. 2. Incidental/non-acute findings are described above. Progress Note: Patient feels better, no longer jhaving any pain. Reevaluation Time: 06:45 (no FX noted.) Disposition Counseled Patient/Family Regarding: Diagnosis - Disposition Referrals: Jadiel Dalton MD [Primary Care Provider] - Disposition Time: 06:55 Condition: STABLE Prescriptions: Acetaminophen/Oxycodone Hydr [Percocet 10/325 mg Tab] 1 tab PO Q6H #15 tab Instructions: Sacral Fracture (ED), Hip Pain (ED) - POA Present On Arrival: None - Clinical Impression Clinical Impression: Hip pain, left, Sacral fracture - Scribe Statement The provider has reviewed the documentation as recorded by the Neelibzachary Casillas All medical record entries made by the Neelibzachary were at my direction and personally dictated by me. I have reviewed the chart and agree that the record accurately reflects my personal performance of the history, physical exam, medical decision making, and the department course for this patient. I have also personally directed, reviewed, and agree with the discharge instructions and disposition.
--- NOTE | 2016-11-26 06:50 | CT ---
EXAM: CT Pelvis Without Intravenous Contrast CLINICAL HISTORY: 71 years old, female; Pain; Hip pain; Bilateral; Additional info: Injury. More pain left side TECHNIQUE: Axial computed tomography images of the pelvis without intravenous contrast. This CT exam was performed using one or more of the following dose reduction techniques: automated exposure control, adjustment of the mA and/or kV according to patient size, and/or use of iterative reconstruction technique. Coronal and sagittal reformatted images were created and reviewed. COMPARISON: CT lumbar spine, 09/10/2016 FINDINGS: Bones/joints: Angulation of anterior cortex of distal sacrum. No dislocation. Degenerative changes of pubic symphysis. Soft tissues: Unremarkable. Vasculature: Mild atherosclerotic disease. Stomach and bowel: Mild mural thickening of distal sigmoid colon/rectum. Mild to moderate stranding within adjacent fat. No obstruction. Other findings: Cholecystectomy. IMPRESSION: 1. Probable nondisplaced sacral fracture. 2. Incidental/non-acute findings are described above.
[2016-11-26 07:02] VITALS: BP 140/90; PULSE 80; RESP 14; O2SAT 96
== END 2016-11-26 07:02 | disposition home or self-care (01) ==
LOC: C.ER 05:24 → SUPCPDRO 05:24 → C.ER 07:02
DX: S32.10XA Unspecified fracture of sacrum, initial encounter for closed fracture (principal); W18.39XA Other fall on same level, initial encounter; Y93.89 Activity, other specified; Y92.89 Other specified places as the place of occurrence of the external cause; M25.552 Pain in left hip
CPT/HCPCS: 72192; 96374; 99283; J2270

== ENCOUNTER 2016-12-09 23:02 | Emergency (ER) | payer MEDICAID, MEDICARE ==
[2016-12-09 23:09] VITALS: O2SAT 99
[2016-12-09] MEDS ORDERED: Iohexol 240 (50 ml) PO ONE (23:26)
[2016-12-09] MEDS ORDERED: Sodium Chloride 0.9% 1,000 ML IV ONE (23:26)
--- NOTE | 2016-12-09 23:30 | C.PDOC ---
History Of Present Illness A 71 y/o F c/o abdominal pain for the past few weeks. Pt took oxycodone for pain with no relief. No work up was done on the pt. Pain is to the abdominal area that radiates to the back. Denies fever, chills, nausea, vomiting, diarrhea , vaginal bleeding, or discharge, dysuria, hematuria, or any other complaints. Time Seen by Provider: 12/09/16 23:27 Chief Complaint (Nursing): Abdominal Pain History Per: Patient History/Exam Limitations: no limitations Onset/Duration Of Symptoms: Days Current Symptoms Are (Timing): Still Present Severity: Mild Location Of Pain/Discomfort: Diffuse Radiation Of Pain To:: Back Associated Symptoms: denies: Fever, Chills, Nausea, Vomiting, Diarrhea Exacerbating Factors: None Alleviating Factors: None Recent travel outside of the [place]: No Additional History Per: Patient Abnormal Vaginal Bleeding: No Past Medical History Reviewed: Historical Data, Nursing Documentation, Vital Signs Vital Signs: Last Vital Signs Temp 98.8 F 12/10/16 02:37 Pulse 94 H 12/10/16 02:37 Resp 20 12/10/16 02:37 BP 128/80 12/10/16 02:37 Pulse Ox 99 12/10/16 02:37 - Medical History PMH: Arthritis ([facility] BACK PAIN), Asthma, HTN Family History: States: Unknown Family Hx - Social History Hx Tobacco Use: No Hx Alcohol Use: No Hx Substance Use: No - Immunization History Hx Tetanus Toxoid Vaccination: No Hx Influenza Vaccination: No Hx Pneumococcal Vaccination: No Review Of Systems Except As Marked, All Systems Reviewed And Found Negative. Constitutional: Negative for: Fever, Chills Gastrointestinal: Positive for: Abdominal Pain. Negative for: Nausea, Vomiting , Diarrhea Genitourinary: Negative for: Dysuria, Hematuria, Vaginal Discharge, Vaginal Bleeding Musculoskeletal: Positive for: Back Pain (Radiation) Physical Exam - Physical Exam Appears: Non-toxic, In Acute Distress (Moderate distress due to pain) Skin: Warm, Dry Head: Atraumatic, Normacephalic Eye(s): bilateral: Normal Inspection Oral Mucosa: Moist Throat: Normal, No Exudate Cardiovascular: Rhythm Regular, No Murmur Respiratory: Normal Breath Sounds, No Accessory Muscle Use, No Rales, No Rhonchi , No Wheezing Gastrointestinal/Abdominal: Soft, Tenderness (Localized tenderness to the RLQ), No Guarding, No Rebound, Other (No abdominal mass palpable) Back: Normal Inspection, No CVA Tenderness, No Vertebral Tenderness, No Paraspinal Tenderness Neurological/Psych: Oriented x3, Normal Speech, Normal Cognition, Other (No focal deficit) Gait: Steady ED Course And Treatment - Laboratory Results Result Diagrams: 12/09/16 23:52 12/09/16 23:52 ECG: Interpreted By Me, Viewed By Me ECG Rhythm: Sinus Tachycardia ECG Interpretation: Normal, No Acute Changes Interpretation Of ECG: Sinus tachycardia, no acute changes, normal tracings. Rate From EC O2 Sat by Pulse Oximetry: 99 (RA) Pulse Ox Interpretation: Normal - CT Scan/US CT Abd with contrast Other Rad Studies (CT/US): Interpreted By Me, Read By Radiologist CT/US Interpretation: EXAM: CT Abdomen and Pelvis With Intravenous Contrast. CLINICAL HISTORY: 71 years old, female; Pain; Abdominal pain; Patient HX: ; Additional info: Abd pain/ rlq. tenderness. TECHNIQUE: Axial computed tomography images of the abdomen and pelvis with intravenous contrast. This CT. exam was performed using one or more of the following dose reduction techniques: automated. exposure control, adjustment of the mA and/or kV according to patient size, and/or use of iterative. reconstruction technique. Coronal and sagittal reformatted images were created and reviewed. CONTRAST: 100 mL of [id number] administered intravenously. COMPARISON: CT - PELVIS W/ O CONTRAST 11/26/2016 6:25:30 AM. FINDINGS: Lower thorax: No acute findings. ABDOMEN: Liver: Hepatic steatosis. Gallbladder and bile ducts: Gallbladder is surgically absent. No ductal dilation. Pancreas: Unremarkable. No mass. No ductal dilation. Spleen: Unremarkable. No splenomegaly. Adrenals: Unremarkable. No mass. Kidneys and ureters: Unremarkable. No solid mass. No hydronephrosis. Stomach and bowel: Stomach is unremarkable. No small bowel obstruction. Moderate amount of. retained stool in colon. Correlate for constipation. Appendix: No findings to suggest acute appendicitis. PELVIS: Bladder: Unremarkable. No mass. Reproductive: Unremarkable as visualized. ABDOMEN and PELVIS: Intraperitoneal space: Unremarkable. No free air. No significant fluid collection. Bones/joints: No acute fracture. No dislocation. Soft tissues: Unremarkable. Vasculature: Multiple bilateral renal cortical hypodense lesions, most consistent with cysts. The. largest on the left measuring 1.4 CM. There is atherosclerotic vascular disease. Lymph nodes: Unremarkable. No enlarged lymph nodes. IMPRESSION: 1. No CT findings to suggest acute appendicitis. 2. Large amount of retained stool. Correlate for constipation. 3. Previously questioned nondisplaced sacral fracture, is not definitely appreciated on current exam Medical Decision Making Medical Decision Making: Impression: A 71 y/o F c/o abdominal pain for the past few weeks. With pain radiation to the back. Plans: -CT Abd with contrast -EKG -Blood labs -CXR -Omnipaque -Morphine -IV fluids -Reassess Disposition Counseled Patient/Family Regarding: Diagnosis - Disposition Referrals: [facility] [Outside] Disposition: HOME/ ROUTINE Disposition Time: 02:30 Condition: STABLE Prescriptions: Ciprofloxacin [Cipro] 1 tab PO BID #14 tab oxyCODONE/Acetaminophen [Percocet 5/325 mg Tab] 1 tab PO Q4 #20 tab Instructions: Urinary Tract Infection in Women (ED), Abdominal Pain (ED), Flank Pain (ED) - Clinical Impression Clinical Impression: Abdominal pain, Urinary tract infection - Scribe Statement The provider has reviewed the documentation as recorded by the Scribe Halina shabazz All medical record entries made by the Scribe were at my direction and personally dictated by me. I have reviewed the chart and agree that the record accurately reflects my personal performance of the history, physical exam, medical decision making, and the department course for this patient. I have also personally directed, reviewed, and agree with the discharge instructions and disposition.
[2016-12-09] MEDS ORDERED: Sodium Chloride 0.9% 1,000 ML ONE (23:36)
[2016-12-09] MEDS ORDERED: Iohexol 240 (50 ml) ONE (23:36)
[2016-12-09 23:55] LABS: BASO # 0.1 K/uL (0.0-0.2); BASO % 2.2 % (0.0-2.0); EOS # 0.1 K/uL (0.0-0.7); EOS % 1.5 % (0.0-4.0); HEMOGLOBIN 14.3 g/dL (11.0-16.0); LYMPH # 2.9 K/uL (1.0-4.3); LYMPH % 52.1 % (20.0-40.0); MEAN CORPUSCULAR HEMOGLOBIN 30.1 pg (27.0-31.0); MEAN CORPUSCULAR HGB CONC 33.9 g/dL (33.0-37.0); MEAN PLATELET VOLUME 7.5 fL (7.2-11.7); MONO # 0.4 K/uL (0.0-0.8); MONO % 7.9 % (0.0-10.0); NEUT % 36.3 % (50.0-75.0); RBC 4.74 Mil/uL (3.80-5.20); WHITE BLOOD COUNT 5.5 K/uL (4.8-10.8)
[2016-12-10 00:03] LABS: ALBUMIN 3.7 g/dL (3.5-5.0)
[2016-12-10 00:06] LABS: ALB/GLOB RATIO 1.1 (1.0-2.1); AST/SGOT 29 U/L (14-36); GFR AFRICAN-AMERICAN > 60; GFR NON-AFRICAN AMERICAN > 60
[2016-12-10 00:07] LABS: ALT/SGPT 36 U/L (9-52); BLOOD UREA NITROGEN 18 mg/dL (7-17); CALCIUM 9.3 mg/dl (8.6-10.4); LIPASE 97 U/L (23-300)
[2016-12-10] MEDS ORDERED: Iohexol 350mg/ml 100 ML ONE (00:45)
[2016-12-10 01:15] LABS: SQUAMOUS EPITHIAL 5 /hpf (0-5); URINE BILIRUBIN NEGATIVE (NEGATIVE); URINE BLOOD NEGATIVE (NEGATIVE); URINE CLARITY Hazy (Clear); URINE COLOR Yellow (YELLOW); URINE GLUCOSE (UA) 3+ mg/dL (Normal); URINE LEUKOCYTE ESTERASE 2+ Leu/uL (Negative); URINE NITRATE NEGATIVE (NEGATIVE); URINE PROTEIN NEGATIVE (NEGATIVE); URINE UROBILINOGEN NORMAL mg/dL (0.2-1.0)
--- NOTE | 2016-12-10 01:31 | CT ---
EXAM: CT Abdomen and Pelvis With Intravenous Contrast CLINICAL HISTORY: 71 years old, female; Pain; Abdominal pain; Patient HX: 6-; Additional info: Abd pain/ rlq tenderness TECHNIQUE: Axial computed tomography images of the abdomen and pelvis with intravenous contrast. This CT exam was performed using one or more of the following dose reduction techniques: automated exposure control, adjustment of the mA and/or kV according to patient size, and/or use of iterative reconstruction technique. Coronal and sagittal reformatted images were created and reviewed. CONTRAST: 100 mL of [id number] administered intravenously. COMPARISON: CT - PELVIS W/O CONTRAST 11/26/2016 6:25:30 AM FINDINGS: Lower thorax: No acute findings. ABDOMEN: Liver: Hepatic steatosis. Gallbladder and bile ducts: Gallbladder is surgically absent. No ductal dilation. Pancreas: Unremarkable. No mass. No ductal dilation. Spleen: Unremarkable. No splenomegaly. Adrenals: Unremarkable. No mass. Kidneys and ureters: Unremarkable. No solid mass. No hydronephrosis. Stomach and bowel: Stomach is unremarkable. No small bowel obstruction. Moderate amount of retained stool in colon. Correlate for constipation. Appendix: No findings to suggest acute appendicitis. PELVIS: Bladder: Unremarkable. No mass. Reproductive: Unremarkable as visualized. ABDOMEN and PELVIS: Intraperitoneal space: Unremarkable. No free air. No significant fluid collection. Bones/joints: No acute fracture. No dislocation. Soft tissues: Unremarkable. Vasculature: Multiple bilateral renal cortical hypodense lesions, most consistent with cysts. The largest on the left measuring 1.4 CM. There is atherosclerotic vascular disease. Lymph nodes: Unremarkable. No enlarged lymph nodes. IMPRESSION: 1. No CT findings to suggest acute appendicitis. 2. Large amount of retained stool. Correlate for constipation. 3. Previously questioned nondisplaced sacral fracture, is not definitely appreciated on current exam.
[2016-12-10] MEDS ORDERED: Ciprofloxacin 400mg/200ml D5W 200 ML IVPB STA (01:52)
[2016-12-10] MEDS ORDERED: Ciprofloxacin 400mg/200ml D5W 400 MG/200 ML BAG IVPB STA (01:55)
[2016-12-10] MEDS ORDERED: Ciprofloxacin 400mg/200ml D5W 400 MG/200 ML BAG IVPB ONE (02:01)
[2016-12-10 02:38] VITALS: BP 128/80; PULSE 94; RESP 20; TEMP 98.8
--- NOTE | 2016-12-10 08:50 | RAD ---
PROCEDURE: CHEST RADIOGRAPH, 1 VIEW HISTORY: Abdominal pain COMPARISON: None available. FINDINGS: LUNGS: Hyperinflation suggestive for COPD and or emphysematous changes. Biapical pleural thickening with upper lobe granulomatous changes. Linear lucencies along the lateral aspect of the bilateral melissa thoraces likely represent Mach artifact and/or skin folds. Clinical correlation. PLEURA: No pneumothorax or pleural fluid seen. CARDIOVASCULAR: Normal. OSSEOUS STRUCTURES: No significant abnormalities. VISUALIZED UPPER ABDOMEN: Normal. OTHER FINDINGS: None. IMPRESSION: Hyperinflation suggestive for COPD and or emphysematous changes. Biapical pleural thickening with upper lobe granulomatous changes. Linear lucencies along the lateral aspect of the bilateral melissa thoraces likely represent Mach artifact and/or skin folds. Clinical correlation.
--- NOTE | 2016-12-12 13:36 | CARD ---
APPROVED REPORT EKG Measurement Heart [id number] <Conclusion> Sinus tachycardia Otherwise normal ECG
== END 2016-12-10 02:38 | disposition home or self-care (01) ==
LOC: C.ER 23:02
DX: N39.0 Urinary tract infection, site not specified (principal)
CPT/HCPCS: 71010; 74177; 80053; 81001; 83690; 85025; 87086; 93005; 96365; 96375; 99285; J0744; J1885; J2270; J7040; Q9966; Q9967

== ENCOUNTER 2016-12-28 05:45 | Emergency (ER) | payer MEDICAID ==
--- NOTE | 2016-12-28 06:19 | C.PDOC ---
History Of Present Illness pt with chronic back pain presents with back pain., states her perocet did not relieve her pain and requests something stronger. Denies any trauma. Pain is similar to her usual back pain Time Seen by Provider: 12/28/16 06:18 History/Exam Limitations: no limitations Onset/Duration Of Symptoms: Days Current Symptoms Are (Timing): Still Present Quality Of Discomfort: Dull Severity: Moderate Pain Scale Rating Of: 4 Previous Symptoms: Back Pain Associated Symptoms: None Exacerbating Factor(s): Turning, Movement Recent travel outside of the [place]: No Additional History Per: Family Past Medical History Reviewed: Historical Data, Nursing Documentation, Vital Signs Vital Signs: Last Vital Signs Temp Pulse Resp BP Pulse Ox 98 12/28/16 06:29 - Medical History PMH: Arthritis ([facility] BACK PAIN), Asthma, HTN Family History: States: No Known Family Hx - Social History Hx Tobacco Use: No Hx Alcohol Use: No Hx Substance Use: No - Immunization History Hx Tetanus Toxoid Vaccination: No Hx Influenza Vaccination: No Hx Pneumococcal Vaccination: No Review Of Systems Constitutional: Negative for: Fever Respiratory: Negative for: Shortness of Breath Gastrointestinal: Negative for: Nausea, Vomiting, Abdominal Pain Genitourinary: Negative for: Dysuria Musculoskeletal: Positive for: Back Pain Skin: Negative for: Rash Neurological: Negative for: Weakness Psych: Negative for: Anxiety Physical Exam - Physical Exam Appears: Non-toxic Skin: Warm, Dry Oral Mucosa: Moist Neck: Supple Chest: Symmetrical Cardiovascular: Rhythm Regular Respiratory: No Rales, No Rhonchi, No Wheezing Gastrointestinal/Abdominal: Soft, No Tenderness Back: Muscle Spasm Extremity: Normal ROM Extremity: Bilateral: Atraumatic Neurological/Psych: Oriented x3, Normal Speech, Normal Cognition Gait: Steady ED Course And Treatment O2 Sat by Pulse Oximetry: 98 Pulse Ox Interpretation: Normal Disposition Counseled Patient/Family Regarding: Studies Performed, Diagnosis, Need For Followup - Disposition Disposition: HOME/ ROUTINE Disposition Time: 06:19 Condition: FAIR Additional Instructions: Must follow up with pain management Instructions: Chronic Back Pain (ED) - Clinical Impression Clinical Impression: Chronic back pain
[2016-12-28] MEDS ORDERED: HYDROmorphone 1 mg/ml ISec IM STA (06:25)
[2016-12-28 06:26] VITALS: BMI 16.2
[2016-12-28 06:28] VITALS: O2SAT 98
== END 2016-12-28 06:47 | disposition home or self-care (01) ==
LOC: C.ER 05:45
DX: G89.29 Other chronic pain (principal); M54.5 Low back pain
CPT/HCPCS: 96372; 99282; J1170